=== PATIENT | female | born 1975 | race Caucasian/White ===

== ENCOUNTER 2022-01-31 16:57 | Emergency (ER) | payer BC ==
[~2022-01-31] VITALS: Ht 165.1 cm; Wt 92.1 kg
[~2022-01-31 16:57] MED LIST: CYCLOBENZAPRINE5 MG PO; CYMBALTA20 MG PO; CYMBALTA60 MG; HYDROCHLOROTH12.5 M1 PO; JANUMET 50-1,01 EACH; KLONOPIN1 MG PO; LEVOTHYROXINE100 MCG; LEVOTHYROXINE88 MCG PO; LISINOPRIL-HCT1 EAC2 PO; LISINOPRIL10 MG PO
[2022-01-31] MEDS ORDERED: ONDANSETRON HCL INJ 2MG/ML 2ML 2 MG/ML VIAL IV STA (17:23)
[2022-01-31] MEDS ORDERED: DICYCLOMINE HCL 20 MG/2 ML VIAL IM ONE (17:30)
[2022-01-31] MEDS ORDERED: SODIUM CHLORIDE 0.9% 1000ML 1,000 ML IV ONE (17:30)
[2022-01-31] MEDS ORDERED: Morphine 4mg Syringe 4 MG/ML INJ IV ONE (17:30)
[2022-01-31 17:51] LABS: BASOPHILS # (AUTO) 0.1 (0.0-0.1); BASOPHILS % 0.8 % (0.0-1.0); EOSINOPHILS # (AUTO) 0.5 (0.0-0.4); EOSINOPHILS % 3.1 % (0.0-6.0); HEMATOCRIT 45.8 % (34.2-44.1); HEMOGLOBIN 15.5 g/dL (12.0-16.0); LYMPHOCYTES # (AUTO) 3.4 (1.0-3.2); LYMPHOCYTES % 22.7 % (18.0-39.1); MEAN CORPUSCULAR HEMOGLOBIN 31.3 pg (28-32); MEAN CORPUSCULAR HGB CONC 33.8 g/dL (31-35); MEAN CORPUSCULAR VOLUME 92.3 fL (81-99); MONOCYTES # (AUTO) 1.1 (0.2-0.8); MONOCYTES % 7.5 % (4.4-11.3); NEUTROPHILS # (AUTO) 9.9 (2.1-6.9); NEUTROPHILS % 65.4 % (38.7-80.0); PLATELET COUNT 340 x10e3/uL (140-360); RED BLOOD COUNT 4.96 x10e6/uL (3.6-5.1); RED CELL DISTRIBUTION WIDTH 13.1 % (11.7-14.4)
[2022-01-31 18:19] LABS: ANION GAP 14.5 mmol/L (8-16); CALCIUM 10.2 mg/dL (8.4-10.2); CREATININE, SERUM 0.99 mg/dL (0.57-1.11); POTASSIUM 3.5 mmol/L (3.5-5.1)
[2022-01-31 18:26] LABS: CREATINE KINASE MB 0.9 ng/mL (0-5.0)
[2022-01-31 20:45] LABS: CLARITY,URINE CLEAR (CLEAR); COLOR,URINE YELLOW (YELLOW); KETONES,URINE NEGATIVE (NEGATIVE); LEUKOCYTE ESTERASE ,URINE NEGATIVE (NEGATIVE); NITRITE,URINE NEGATIVE (NEGATIVE); PROTEIN,URINE DIPSTICK NEGATIVE (NEGATIVE); URINE UROBILINOGEN 0.2 mg/dL (0.2 - 1)
[2022-01-31 21:00] LABS: BACTERIA,URINE RARE /HPF; EPITHELIAL CELLS,URINE FEW /LPF; RBC,URINE 0-5 /HPF (0-5); WBC,URINE (MAN) 0-5 /HPF (0-5)
[2022-01-31 21:15] VITALS: BP 119/88
[2022-01-31] MEDS ORDERED: DICYCLOMINE HCL20 MG PO (21:17)
[2022-01-31] MEDS ORDERED: PANTOPRAZOLE SO40 MG PO (21:17)
[2022-01-31] MEDS ORDERED: HYDROCODON-ACE1 EAC9 PO (21:17)
[2022-01-31] MEDS ORDERED: ONDANSETRON ODT4 MG PO (21:17)
== END 2022-01-31 21:28 | disposition home or self-care (01) ==
LOC: ER 17:10
DX: R10.11 Right upper quadrant pain (principal); I10 Essential (primary) hypertension; E78.5 Hyperlipidemia, unspecified; M06.9 Rheumatoid arthritis, unspecified; M32.9 Systemic lupus erythematosus, unspecified; F17.210 Nicotine dependence, cigarettes, uncomplicated
CPT/HCPCS: 36415; 76705; 80053; 81001; 82150; 82550; 82553; 83690; 84484; 85025; 93005; 99284; C9113; J0500; J2270; J2405; J7030

== ENCOUNTER → 2024-06-09 14:25 | Emergency (ER) | payer OTHER ==
[~2024-06-09 14:25] MED LIST changes: +AMOX TR-K CLV1 EAC2 PO; +BACTRIM DS TAB1 EACH PO; +DICYCLOMINE HCL20 MG PO; +HYDROCODON-ACE1 EAC9 PO; +ONDANSETRON ODT4 MG PO; +ONDANSETRON ODT4 MG SL; +PANTOPRAZOLE SO40 MG PO
== END | disposition short-term general hospital (02) ==
LOC: ER 14:25
DX: R10.9 Unspecified abdominal pain (principal)

== ENCOUNTER 2024-06-09 17:20 | Emergency (ER) | payer OTHER ==
[~2024-06-09] VITALS: Ht 165.1 cm; Wt 92.1 kg
[~2024-06-09 17:20] MED LIST changes: -ONDANSETRON ODT4 MG SL
[2024-06-09 20:22] VITALS: RESP 20
[2024-06-09] MEDS ORDERED: ONDANSETRON HCL INJ 2MG/ML 2ML 2 MG/ML VIAL ONE (20:37)
[2024-06-09] MEDS ORDERED: SODIUM CHLORIDE 0.9% 1000ML 1,000 ML ONE (20:37)
[2024-06-09] MEDS: SODIUM CHLORIDE 0.9% 1000ML 1,000 ML IV ONE (20:37)
[2024-06-09] MEDS: ONDANSETRON HCL INJ 2MG/ML 2ML 2 MG/ML VIAL IV STA (20:37)
[2024-06-09 20:42] LABS: BASOPHILS % 0.1 % (0.0-1.0); HEMATOCRIT 48.1 % (34.2-44.1); HEMOGLOBIN 16.2 g/dL (12.0-16.0); LYMPHOCYTES # (AUTO) 1.1 (1.0-3.2); LYMPHOCYTES % 7.7 % (18.0-39.1); MEAN CORPUSCULAR HEMOGLOBIN 31.2 pg (28-32); MEAN CORPUSCULAR HGB CONC 33.7 g/dL (31-35); MEAN CORPUSCULAR VOLUME 92.7 fL (81-99); MONOCYTES # (AUTO) 0.5 (0.2-0.8); MONOCYTES % 3.6 % (4.4-11.3); NEUTROPHILS # (AUTO) 12.8 (2.1-6.9); NEUTROPHILS % 88.3 % (38.7-80.0); PLATELET COUNT 314 x10e3/uL (140-360); RED BLOOD COUNT 5.19 x10e6/uL (3.6-5.1); RED CELL DISTRIBUTION WIDTH 12.7 % (11.7-14.4); WHITE BLOOD COUNT 14.47 x10e3/uL (4.8-10.8)
[2024-06-09 21:01] LABS: ALBUMIN 4.2 g/dL (3.5-5.0); ALBUMIN/GLOBULIN RATIO 1.1 (0.8-2.0); ANION GAP 18.7 mmol/L (8-16); BILIRUBIN,TOTAL 0.5 mg/dL (0.2-1.2); CALCIUM 9.5 mg/dL (8.4-10.2); CREATININE, SERUM 0.85 mg/dL (0.57-1.11); POTASSIUM 3.7 mmol/L (3.5-5.1)
[2024-06-09 21:02] LABS: LIPASE 12 U/L (8-78)
[2024-06-09 21:09] LABS: TROPONIN I < 0.001 ng/mL (0-0.300)
[2024-06-09] MEDS ORDERED: IOPAMIDOL 370 MG/ML 100 ML INFUS..BTL INJ ONE (22:11)
[2024-06-09 22:57] LABS: BILIRUBIN,URINE 1+ (NEGATIVE); CLARITY,URINE SL CLOUDY (CLEAR); COLOR,URINE YELLOW (YELLOW); GLUCOSE, URINE 500 (NEGATIVE); KETONES,URINE 2+ (NEGATIVE); LEUKOCYTE ESTERASE ,URINE NEGATIVE (NEGATIVE); NITRITE,URINE NEGATIVE (NEGATIVE); PH,URINE 6.5 (5 - 7); PROTEIN,URINE DIPSTICK 1+ (NEGATIVE); URINE UROBILINOGEN 0.2 mg/dL (0.2 - 1)
[2024-06-09 23:07] LABS: BACTERIA,URINE MODERATE /HPF; EPITHELIAL CELLS,URINE MODERATE /LPF; MUCUS,URINE FEW (RARE)
[2024-06-09] MEDS: KETOROLAC TROMETHAMINE 30 MG/ML VIAL IV STA (23:43)
[2024-06-09] MEDS ORDERED: PANTOPRAZOLE SO40 MG PO (23:59)
[2024-06-09] MEDS ORDERED: ONDANSETRON ODT4 MG SL (23:59)
[2024-06-10 00:18] VITALS: PULSE 84; TEMP 98.7; O2SAT 98
== END 2024-06-10 00:20 | disposition home or self-care (01) ==
LOC: ER 17:30
DX: R10.13 Epigastric pain (principal); R11.2 Nausea with vomiting, unspecified; E11.65 Type 2 diabetes mellitus with hyperglycemia; I10 Essential (primary) hypertension; E78.5 Hyperlipidemia, unspecified; E03.9 Hypothyroidism, unspecified; M06.9 Rheumatoid arthritis, unspecified; R94.31 Abnormal electrocardiogram [ECG] [EKG]
CPT/HCPCS: 36415; 74177; 80053; 81001; 83690; 84484; 84702; 85025; 93005; 99284; J1885; J2405; J2470; J7030; Q9967